=== PATIENT | female | born 1975 | race African-American/Black ===

== ENCOUNTER 2021-09-02 11:37 | Day surgery (SDC) | payer OTHER ==
[~2021-09-02] VITALS: Ht 165.1 cm; Wt 150.0 kg
[~2021-09-02 11:37] MED LIST: ASCO500 PO; CHOL25TA4 PO; CHOL500013 PO; FERR325T27 PO; HYDR25TA2 PO; SODIUM CHLORIDE 0.9% 1,000 ML ONE
[2021-09-02] MEDS ORDERED: LIDOCAINE/PF 2% 5 ML VIAL IM ONE (12:00)
[2021-09-02] MEDS ORDERED: PROPOFOL 1% 20 ML VIAL IVP ONE (12:00)
[2021-09-02] MEDS ORDERED: SODIUM CHLORIDE 0.9% 1,000 ML IV ONE (12:30)
== END 2021-09-02 15:40 | disposition home or self-care (01) ==
LOC: SURGERY 11:37
PROVIDERS: ATTEND Internal Medicine Gastroenterology
DX: D50.9 Iron deficiency anemia, unspecified (principal); K57.30 Diverticulosis of large intestine without perforation or abscess without bleeding; K64.8 Other hemorrhoids; K29.70 Gastritis, unspecified, without bleeding; K44.9 Diaphragmatic hernia without obstruction or gangrene; K20.90 Esophagitis, unspecified without bleeding; I10 Essential (primary) hypertension; E66.01 Morbid (severe) obesity due to excess calories; Z88.6 Allergy status to analgesic agent; Z88.8 Allergy status to other drugs, medicaments and biological substances; Z90.49 Acquired absence of other specified parts of digestive tract; Z79.899 Other long term (current) drug therapy; Z98.890 Other specified postprocedural states; Z68.43 Body mass index [BMI] 50.0-59.9, adult
CPT/HCPCS: 45378; 43239; J2704; J3490; J7030; 88305; 88312; 88313